=== PATIENT | male | born 1935 | race Caucasian/White ===

== ENCOUNTER 2018-12-23 17:30 | Inpatient (IN) ==
--- NOTE | 2018-12-23 18:11 | PROVIDER DOCUMENTATION ---
This chart was entered by Glenna Reynolds Scribe, acting as scribe for Melida Potts MD. HPI-General Adult <Paxton Boyle - Last Filed: 12/23/18 20:08> - General Source: EMS - History of Present Illness -Gen Adult Nature of Presenting Problems: 83 y/o male presents to ED with fever, confusion, and cough onset 3 days ago. Pt is confused and nonverbal. Location of Pain/Injury: reports: none Pain Radiation: reports: no radiation Quality of Pain: reports: none Severity: reports: mild Onset/Duration: reports: 3 days ago Timing: reports: still present Context/Activities at Onset: reports: none Modifying Factors: improves with: nothing Associated Symptoms: reports: cough, fever/chills, other (confusion) Similar Symptoms Previously?: No Recently seen or treated by another doctor?: No <Melida Potts - Last Filed: 12/24/18 15:39> - General Chief Complaint: Fever Stated Complaint: fever Time Seen by Provider: 12/23/18 17:39 Allergies/Adverse Reactions: Patient Allergies Allergy/AdvReac Type Severity Reaction Status Date / Time No Known Allergies Allergy Verified 05/23/18 16:09 Home Medications: Home Medication List Medication Instructions Recorded Confirmed Last Taken Type Latanoprost/Pf [Latanoprost 0.005% 1 drop OP QHS 05/23/18 12/23/18 Unknown History Eye Drop] Acetaminophen [Tylenol] 325 mg PO TID 12/23/18 12/23/18 Unknown History Aspirin 81 mg PO DAILY 12/23/18 12/23/18 Unknown History Review of Systems - Adult - REVIEW OF SYSTEMS - ADULT Constitutional: reports: fever, other (confusion). denies: chills Eyes: reports: no symptoms reported Ears, Nose, Mouth & Throat: reports: no symptoms reported Cardiovascular: denies: chest pain, palpitations Respiratory: reports: cough. denies: shortness of breath Gastrointestinal: denies: abdominal pain, diarrhea, nausea, vomiting Genitourinary: reports: no symptoms reported Musculoskeletal: denies: back pain, joint pain Integumentary: reports: no symptoms reported Neurological: reports: other (confusion). denies: dizziness/vertigo, seizure Psychiatric: reports: no symptoms reported Endocrine: reports: no symptoms reported Hematologic/Lymphatic: reports: no symptoms reported Allergic/Immunologic: reports: no symptoms reported All Other Systems: Reviewed and Negative <Melida Potts - Last Filed: 12/24/18 15:39> Past History - Adult - PAST MEDICAL HISTORY-ADULT Review of Records: reports: Old Records Reviewed, Nursing Assessment Review, Medications Reviewed Major Childhood Illnesses: reports: history unknown Cardiovascular: reports: HTN, hyperlipidemia Respiratory: reports: denies history Gastrointestinal: reports: denies history Obstetrical/Gynecological: reports: denies history Genitourinary: reports: denies history Musculoskeletal: reports: denies history Neurological: reports: dementia Psychiatric: reports: depression Endocrine/Immune: reports: denies history Other Conditions: reports: cataract/glaucoma - PRIOR SURGERIES/PROCEDURES Surgical/Procedure History: reports: reviewed, not pertinent, hernia repair, other (cataract removal) - PRIOR HOSPITALIZATIONS Prior Hospitalizations: reports: none - IMMUNIZATION STATUS Childhood Immunizations: See Nurse Assessment Flu Vaccine: See Nurse Assessment - FAMILY HISTORY Family History: reviewed, not pertinent - SOCIAL HISTORY Smoking: quit less than 1 year Substance Use: none/never Alcohol Use Frequency: occasionally Living Situation: family <Melida Potts - Last Filed: 12/24/18 15:39> Physical Exam-General - PHYSICAL EXAM-ADULT Initial Vital Signs Reviewed: Yes - CONSTITUTIONAL General Appearance: alert, mild distress, other (confused; nonverbal) - EYES Eyes: PERRL/EOMI, pink conjunctivae - HEAD, EARS, NOSE, MOUTH & THROAT HENMT: normocephalic/atraumatic, moist mucous membranes - NECK Neck: full range of motion - RESPIRATORY Respiratory: other (rattling breath sounds) - CARDIOVASCULAR Cardiovascular: tachycardia - MUSCULOSKELETAL Back Exam: normal inspection Extremity: normal range of motion - SKIN Integumentary: normal color, warm/dry - NEUROLOGIC Neurologic: other (confused; nonverbal) - PSYCHIATRIC Psych/Mental Status: other (confused; nonverbal) <Melida Potts - Last Filed: 12/24/18 15:39> Progress - PLAN OF CARE/RESULTS Progress/Plan/Lab Results: Vital Signs - 8 hr 12/23/18 18:00 12/23/18 18:24 Temperature 103.1 F H 103.1 F H Pulse Rate 94 H 101 H Respiratory Rate 22 25 H Blood Pressure 116/72 127/81 O2 Sat by Pulse Oximetry 95 93 L Laboratory Results - last 24 hr 12/23/18 12/23/18 12/23/18 17:57 17:57 17:57 WBC RBC Hgb Hct MCV MCH MCHC RDW Std Deviation Plt Count MPV Immature Gran % (Auto) Neut % (Auto) Lymph % (Auto) [place] % (Auto) Eos % (Auto) Baso % (Auto) Immature Gran # (Auto) Neut # (Auto) Lymph # (Auto) [place] # (Auto) Eos # (Auto) Baso # (Auto) PT INR PTT (Actin FS) Sodium 135 L Potassium 3.8 Chloride 100 Carbon Dioxide 22 L Anion Gap 13 BUN 19 Creatinine 0.7 Estimated GFR/1.73 m2 > 60 BUN/Creatinine Ratio 27 Glucose 111 H Calculated Osmolality 273 Calcium 7.8 L Total Bilirubin 0.50 AST 20 ALT 18 Alkaline Phosphatase 73 Creatine Kinase 45 Troponin T < 0.010 Total Protein 6.4 Albumin 3.9 Globulin 3.0 Albumin/Globulin Ratio 2.0 Plasma Lactate 1.3 Urine Source Urine Color Urine Clarity Urine pH Ur Specific [place] Urine Protein Urine Ketones Urine Blood Urine Nitrite Urine Bilirubin Urine Urobilinogen Urine Microscopic RBC Urine WBC Urine Microscopic WBC Ur Epithelial Cells Urine Crystals Urine Bacteria Urine Casts Urine Yeast Urine Glucose 12/23/18 12/23/18 12/23/18 17:57 17:57 18:22 WBC 10.85 H RBC 3.38 L Hgb 11.4 L Hct 34.0 L MCV 100.6 H MCH 33.7 H MCHC 33.5 RDW Std Deviation 12.3 Plt Count 131 MPV 10.4 Immature Gran % (Auto) 0.3 Neut % (Auto) 79.7 H Lymph % (Auto) 11.3 L [place] % (Auto) 7.8 Eos % (Auto) 0.6 Baso % (Auto) 0.3 Immature Gran # (Auto) 0.03 Neut # (Auto) 8.64 H Lymph # (Auto) 1.23 [place] # (Auto) 0.85 H Eos # (Auto) 0.07 Baso # (Auto) 0.03 PT 13.4 INR 0.97 PTT (Actin FS) 30.1 Sodium Potassium Chloride Carbon Dioxide Anion Gap BUN Creatinine Estimated GFR/1.73 m2 BUN/Creatinine Ratio Glucose Calculated Osmolality Calcium Total Bilirubin AST ALT Alkaline Phosphatase Creatine Kinase Troponin T Total Protein Albumin Globulin Albumin/Globulin Ratio Plasma Lactate Urine Source CATH Urine Color YELLOW Urine Clarity VERY CLOUDY A Urine pH 7.0 Ur Specific [place] 1.010 Urine Protein 1+(30 mg/dL) A Urine Ketones TRACE Urine Blood 3+ A Urine Nitrite NEGATIVE Urine Bilirubin NEGATIVE Urine Urobilinogen NORMAL Urine Microscopic RBC 10-20 A Urine WBC 2+ A Urine Microscopic WBC TNTC A Ur Epithelial Cells <10 Urine Crystals NONE SEEN Urine Bacteria 1+ Urine Casts NONE SEEN Urine Yeast PRESENT Urine Glucose NEGATIVE Orders Category Date Time Status Cardiac Monitoring DIRECTED Care 12/23/18 17:58 Active IV Insertion ORDERED Care 12/23/18 17:58 Completed Notify MD of + Sepsis Screen NOW Care 12/23/18 17:58 Active Notify Physician As Ordered Care 12/23/18 17:58 Active CHEST-1 VIEW [RAD] Stat Exams 12/23/18 17:58 Completed BLOOD CULTURE [BLDCUL] Stat Lab 12/23/18 18:11 Ordered CBC WITH DIFF [HEME] Stat Lab 12/23/18 17:57 Completed CK PROFILE [SP CHEM] Stat Lab 12/23/18 17:57 Completed COMPREHENSIVE METABOLIC PANEL [CHEM] Stat Lab 12/23/18 17:57 Completed LACTATE, PLASMA [CHEM] Lab 12/23/18 17:57 Completed LACTATE, PLASMA [CHEM] Lab 12/23/18 21:00 Uncollected LACTATE, PLASMA [CHEM] Lab 12/24/18 00:00 Uncollected PROTIME WITH INR [COAG] Stat Lab 12/23/18 17:57 Completed PTT [COAG] Stat Lab 12/23/18 17:57 Completed TROPONIN T Stat Lab 12/23/18 17:[address] W/POSS RFLX CULT [URINALYSIS] Stat Lab 12/23/18 18:22 Completed URINE CULTURE [RM] Routine Lab 12/23/18 19:19 Ordered Acetaminophen [Tylenol] Med 12/23/18 18:53 Discontinued 650 mg .ROUTE .STK-MED ONE Acetaminophen [Tylenol] Med 12/23/18 18:29 Discontinued 650 mg PO NOW ONE Acetaminophen [Tylenol] Med 12/23/18 18:56 Discontinued 650 mg PO NOW ONE Oxygen Device Stat Oth 12/23/18 17:58 Active Result Diagrams: 12/23/18 17:57 12/23/18 17:57 <Paxton Boyle - Last Filed: 12/23/18 20:08> - PLAN OF CARE/RESULTS Progress/Plan/Lab Results: Orders Category Date Time Status Cardiac Monitoring DIRECTED Care 12/23/18 17:58 Ordered IV Insertion ORDERED Care 12/23/18 17:58 Ordered Notify MD of + Sepsis Screen NOW Care 12/23/18 17:58 Ordered Notify Physician As Ordered Care 12/23/18 17:58 Ordered CHEST-1 VIEW [RAD] Stat Exams 12/23/18 17:58 Ordered BLOOD CULTURE [BLDCUL] Stat Lab 12/23/18 17:58 Uncollected CBC WITH DIFF [HEME] Stat Lab 12/23/18 17:58 Uncollected CK PROFILE [SP CHEM] Stat Lab 12/23/18 17:58 Uncollected COMPREHENSIVE METABOLIC PANEL [CHEM] Stat Lab 12/23/18 17:58 Uncollected PROTIME WITH INR [COAG] Stat Lab 12/23/18 17:58 Uncollected PTT [COAG] Stat Lab 12/23/18 17:58 Uncollected TROPONIN T Stat Lab 12/23/18 17:58 Uncollected Result Diagrams: 12/23/18 17:57 12/23/18 17:57 - XRAY 1 XRAY Study: Chest Impression: See EMR Report - CHANGE OF SHIFT REPORT (ED Provider) 1 Report Given and Care Transferred to:: Dr Boyle Time of Transfer: 19:00 Items Pending: Labs, XRAY Results, Other (reassessment after treatment) <Melida Potts - Last Filed: 12/24/18 15:39> Departure - Departure Date of Disposition Decision: 12/23/18 Time of Disposition Decision: 20:13 Certified Medical Emergency: Emergent - Critical Care Note This patient required my direct & personal management of CC.: No <Paxton Boyle - Last Filed: 12/23/18 20:08> <Melida Potts - Last Filed: 12/24/18 15:39> - Departure DIAGNOSIS: Pneumonia, UTI (urinary tract infection) Disposition: ADMITTED INPATIENT 09 Condition: Stable Attestation - Physician/ TANA Attestation Patient care was provided by Advanced Practice Provider:: No The physician spent face to face time with patient:: Yes Advanced Practice Provider documentation review:: Supervising physician onsite and consulted in the evaluation and care of this patient. The physician did have a face to face encounter with the patient. <Paxton Boyle - Last Filed: 12/23/18 20:08> - Physician/ TANA Attestation Patient care was provided by Advanced Practice Provider:: No The physician spent face to face time with patient:: Yes Advanced Practice Provider documentation review:: Supervising physician onsite and consulted in the evaluation and care of this patient. The physician did have a face to face encounter with the patient. <Melida Potts - Last Filed: 12/24/18 15:39> This chart was documented by the indicated scribe, (Glenna Reynolds, Scrravinder) and accurately reflects the services I performed and decisions made by Delroy phillips Mai Huu, MD, as attested by the provider's signature.
[2018-12-23] MEDS ORDERED: TYLENOL PO ONE ×2 (18:29→18:56)
[2018-12-23 18:32] LABS: BASO# 0.03 X1000 (0.0-0.2); BASO% 0.3 % (0.0-0.8); EOS# 0.07 X1000 (0.0-0.7); EOS% 0.6 % (0.0-10.0); HEMOGLOBIN 11.4 g/dL (14.0-18.0); IMM GRAN# 0.03 X1000 (0.0-0.04); IMM GRAN% 0.3 % (0.0-0.5); LYMPH# 1.23 X1000 (1.2-3.4); LYMPH% 11.3 % (20.5-51.1); MCH 33.7 PG (27-31); MCHC 33.5 g/dL (33-37); MCV 100.6 FL (81-99); MONO# 0.85 X1000 (0.11-0.59); MONO% 7.8 % (1.7-9.3); MPV 10.4 FL (7.4-10.4); NEUT# 8.64 X1000 (1.4-6.5); NEUT% 79.7 % (42.2-75.2); PLT 131 X1000 (130-400); RBC 3.38 XMIL (4.7-6.1); RDW 12.3 % (11.5-14.5); WBC 10.85 X1000 (4.8-10.8)
[2018-12-23 18:42] LABS: BILIRUBIN URINE NEGATIVE (NEGATIVE); BLOOD URINE 3+ (NEGATIVE); CLARITY VERY CLOUDY (CLEAR); COLOR YELLOW; GLUCOSE URINE NEGATIVE (NEGATIVE); KETONE URINE TRACE mg/dL (NEGATIVE); LEUKOCYTES URINE 2+ (NEGATIVE); NITRITE URINE NEGATIVE (NEGATIVE); PROTEIN URINE 1+(30 mg/dL) mg/dL (NEGATIVE); UROBILINOGEN URINE NORMAL
[2018-12-23 18:48] LABS: INR 0.97; PROTIME 13.4 Seconds (11.0-16.0); PTT 30.1 Seconds (22.3-41.8)
[2018-12-23] MEDS ORDERED: TYLENOL ONE (18:53)
--- NOTE | 2018-12-23 19:06 | Diag Imaging Result Doc PS360 ---
CHEST-1 VIEW - 12/23/2018 INDICATION: cough and fever COMPARISON: 05/23/2018 FINDINGS: There are ill-defined infiltrates in the right middle lobe and left lower lobe. Heart size is top normal. No pneumothorax or significant pleural effusion. IMPRESSION: Ill-defined bilateral basilar infiltrates/pneumonia. Electronically signed by Simeon Cosme 12/23/2018 7:04 PM
[2018-12-23 19:13] LABS: URINE SOURCE CATH
[2018-12-23 19:14] LABS: AGAP 13; ALBUMIN 3.9 g/dL (3.5-5.0); ALKALINE PHOSPHATASE 73 U/L (32-122); BUN 19 mg/dL (8-22); CALCIUM 7.8 mg/dL (8.8-10.2); CHLORIDE 100 mmol/L (98-107); CK PROFILE 45 U/L (24-204); COSMO 273; CREATININE 0.7 mg/dL (0.7-1.2); ESTIMATED GFR > 60; GLUCOSE 111 mg/dL (70-104); GOT 20 U/L (10-34); GPT 18 U/L (10-44); POTASSIUM 3.8 mmol/L (3.5-5.1); SODIUM 135 mmol/L (136-145); TCO2 22 mmol/L (25-35); TOTAL PROTEIN 6.4 g/dL (6.3-8.3)
[2018-12-23 19:19] LABS: URINE BACTERIA 1+ /HFP; URINE CAST NONE SEEN /LPF; URINE CRYSTAL NONE SEEN /HPF; URINE EPITHELIAL CELLS <10 /HPF (<10); URINE WBC TNTC /HPF (<10); URINE YEAST PRESENT /HPF
[2018-12-23] MEDS ORDERED: LEVAQUIN 500 MG/D5W 500 MG/100 ML IVPB IV ONE (20:54)
[2018-12-23] MEDS ORDERED: NS 1,000 ML IV ONE (20:54)
[2018-12-23] MEDS: DUONEB (A & A) INH SCH (23:44)
[2018-12-23] MEDS ORDERED: DUONEB (A & A) ONE (23:44)
[2018-12-24] MEDS: DUONEB (A & A) INH SCH ×4 (03:15→22:06)
[2018-12-24] MEDS: TYLENOL PO PRN ×2 (04:19→10:49)
[2018-12-24] MEDS ORDERED: NS 1,000 ML IV ONE (08:50)
[2018-12-24] MEDS ORDERED: ROCEPHIN 1 GM in NS 50 ML IV SCH (09:00)
[2018-12-24] MEDS: MUCOMYST 20% INH SCH ×2 (09:15→22:06)
[2018-12-24] MEDS: PULMICORT INH SCH ×2 (09:20→22:06)
[2018-12-24] MEDS: ASPIRIN PO SCH (09:26)
[2018-12-24] MEDS ORDERED: DULCOLAX PR ONE (10:05)
[2018-12-24] MEDS ORDERED: MOTRIN PO PRN (11:10)
[2018-12-24] MEDS: ZOSYN 3.375 GM in NS 50 ML IV SCH ×3 (11:25→23:11)
[2018-12-24] MEDS: OFIRMEV 1000 MG/ISOTONIC SOLN 1,000 MG/100 ML BOTTLE IV PRN ×2 (11:57→20:54)
[2018-12-24] MEDS: SODIUM CHLORIDE 0.9% INJ SCH (12:37)
[2018-12-24] MEDS: PEPCID IV SCH (12:38)
[2018-12-24 13:14] LABS: INFLUENZA A NEGATIVE (NEGATIVE); INFLUENZA B NEGATIVE (NEGATIVE)
[2018-12-24] MEDS: ZITHROMAX 500 MG/NS 500 MG/250 ML IVPB IV SCH (14:21)
--- NOTE | 2018-12-24 15:23 | HISTORY AND PHYSICAL ---
This is an Addendum. Please see below for changes. CHIEF COMPLAINT: Productive cough and fevers. PRIMARY CARE PHYSICIAN: Dr. Nathen Thomas HISTORY OF PRESENT ILLNESS: Mr. Buck Velásquez is an 83-year-old male with a medical history of end stage Alzheimer's dementia, glaucoma, who is here due to fevers and productive cough that started yesterday per the family who is at the bedside. The patient is unable to give any type of history or really carry on any type of conversation due to the advanced dementia and Alzheimer's. Apparently he had gotten up to 102.9. He was initiated on antibiotic therapy. In the ER, he was found to have on his chest x-ray bilateral bibasilar pneumonia. Productive phlegm that is a cream color. We have ordered a sputum culture. He is not in sepsis. His heart rate is in normal range, but he does keep having spikes in fevers. He is negative for the flu. He is a DNR due to his living will specifications. On further questioning the family, it has been 2 days since he has had a bowel movement. Due to the fact that he refuses to wear dentures, they have to puree all of his food. There is a good possibility he could be aspirating or refluxing from constipation. PAST MEDICAL HISTORY: 1. End stage Alzheimer's dementia. 2. Hyperlipidemia. 3. Glaucoma. PAST SURGICAL HISTORY: 1. Right hip hemiarthroplasty by Dr. Rivas in 05/2018. 2. Inguinal hernia surgery. SOCIAL HISTORY: Quit smoking 40 plus years ago. No alcohol. Lives at home with his . He has several family members that are good caretakers for him. He walks without an assistive device but essentially uses 2-person assistance. FAMILY HISTORY: Mother had Alzheimer's dementia and a stroke. Father unknown. ALLERGIES: No known drug allergies. HOME MEDICATIONS: 1. Latanoprost 1 drop in both eyes at night. 2. Aspirin 81 mg p.o. daily. 3. Tylenol 325 mg p.o. 3 times a day. REVIEW OF SYSTEMS: Unable to obtain. PHYSICAL EXAMINATION: VITAL SIGNS: Temperature is 102.1, heart rate 95, respiratory rate 18, blood pressure 110/92, O2 saturation is 98% on nasal cannula 2 L. GENERAL: Mr. Buck Velásquez is an 83-year-old male. He is in no acute distress, but he does not answer questions due to the severity of his Alzheimer's. HEENT: Atraumatic and normocephalic. Pupils are equal and reactive. He does not follow commands, so extraocular movements could not be performed. Mucous membranes are dry. Without teeth or dentures. NECK: Trachea midline. CARDIOVASCULAR: S1, S2. Regular rate and rhythm. No rubs, gallops or murmurs. No lower extremity edema. Plus 2 dorsalis pedal pulses. Plus 2 radial pulses. Negative JVD or carotid bruits. PULMONARY: Coarse throughout, expiratory rhonchi. Tolerating 2 L nasal cannula. No accessory muscle use or work of breathing noted. GASTROINTESTINAL: Soft. Nontender and nondistended. Positive bowel sounds x4. EXTREMITIES: Moves all extremities equally. Decreased range of motion. NEUROLOGICAL: Disoriented. He does not answer questions, just talks randomly. He does not follow commands. SKIN: Warm, dry and intact. DIAGNOSTIC DATA: White blood cells 10,000, hemoglobin 11, hematocrit 34, platelet count 131. INR is 0.97. PTT is 30.1. Sodium is 135, potassium 3.8, BUN is 19, creatinine 0.7, glucose 111, calcium 7.8, bilirubin 0.50, AST is 20, ALT is 18. CK is 45. Troponin less than 0.01. Albumin 3.0, lactate 1.9. He had 3 lactates performs, the first one was 1.3, the second one was 1.5, and the last one was 1.9. Urinalysis is very cloudy, 1+ protein, 3+ bacteria, 10 to 20 microscopic red blood cells, 2+ white blood cells, too numerous to count microscopic white blood cells, 1+ bacteria, yeast is present. Negative flu. IMAGING: Chest x-ray with bibasilar pneumonia. Telemetry strips show he is sinus rhythm. ASSESSMENT AND PLAN: 1. Community acquired pneumonia versus aspiration pneumonia. He has had some constipation along with not wearing dentures when he eats, and food has to be pureed, so he is at risk for aspiration. Antibiotic that has been initiated is Zosyn. He did get Levaquin. He is on nebulizers, pulmonary toilet as able, Mucomyst nebulizers. Budesonide was added. 2. Glaucoma. Eyedrops resumed. 3. Hyperlipidemia. He is not on a statin at home. 4. End stage Alzheimer's dementia. He has been off all of his dementia medications since 05/2018. 5. Acute hypoxemic respiratory failure. All he is requiring is 2 L of oxygen right now. We will titrate as needed. He is currently on nebulizers. 6. DVT prophylaxis. Lovenox. 7. Fever control. Motrin and Ofirmev. 8. Constipation. He is being started on Dulcolax. He could be having some reflux on that, so he has been started on Pepcid 20 IV q.12. Dictated by MARQUISE Moreira for Del Polanco MD cc: MARQUISE Moreira MD ADDENDUM #2 (Dictated: 12/24/2018 @ 13:47:30) ASSESSMENT AND PLAN: Urinary tract infection. Unable to give any symptoms due to his advanced dementia, Alzheimer's, but with the urinalysis, it looks like he has a urinary tract infection, and Zosyn should cover that as well. Dictated by MARQUISE Moreira for Del Polanco MD cc: MARQUISE Moreira MD
--- NOTE | 2018-12-24 15:27 | PROGRESS NOTE ---
DATE: 12/24/2018 ADDENDUM: The patient is an 83-year-old gentleman, has very good family support, severe dementia, who comes in with fever and cough, altered mental status. He is verbal although limited. He came in with significant confusion. He had temperatures of up to 103 in the ER and evidence of pneumonia and UTI. On exam he has rhonchorus breath sounds, not particularly hypoxic but he is minimally awake. In any case, patient came in for workup. He met criteria I think initially for sepsis although I do not think his initial issues revealed sepsis. He will be treated with broad- spectrum antibiotics and we will evaluate for possible aspiration. This is a [id number] encounter note with Angy Fernando. cc: Del Polanco MD
[2018-12-24] MEDS: XALATAN 0.005% OPH SOLN OPH SCH (20:53)
[2018-12-24] MEDS: DULCOLAX PR SCH (20:54)
[2018-12-25] MEDS: SODIUM CHLORIDE 0.9% INJ SCH (00:39)
[2018-12-25] MEDS: PEPCID IV SCH ×3 (00:39→23:14)
[2018-12-25] MEDS: DUONEB (A & A) INH SCH ×4 (03:02→20:32)
[2018-12-25] MEDS: ZOSYN 3.375 GM in NS 50 ML IV SCH ×4 (05:21→23:14)
[2018-12-25] MEDS ORDERED: LOVENOX SUBQ SCH (06:00)
[2018-12-25 06:13] LABS: AGAP 9; ALBUMIN 3.3 g/dL (3.5-5.0); ALKALINE PHOSPHATASE 80 U/L (32-122); BUN 14 mg/dL (8-22); CALCIUM 8.1 mg/dL (8.8-10.2); CHLORIDE 105 mmol/L (98-107); COSMO 281; CREATININE 0.7 mg/dL (0.7-1.2); ESTIMATED GFR > 60; GLUCOSE 111 mg/dL (70-104); GOT 19 U/L (10-34); GPT 18 U/L (10-44); POTASSIUM 3.8 mmol/L (3.5-5.1); SODIUM 140 mmol/L (136-145); TCO2 26 mmol/L (25-35); TOTAL PROTEIN 6.2 g/dL (6.3-8.3)
[2018-12-25 06:20] LABS: HEMATOCRIT 31.4 % (42.0-52.0); MCV 103.3 FL (81-99); RBC 3.04 XMIL (4.7-6.1); WBC 8.17 X1000 (4.8-10.8)
[2018-12-25 06:21] LABS: BASO# 0.02 X1000 (0.0-0.2); BASO% 0.2 % (0.0-0.8); EOS# 0.03 X1000 (0.0-0.7); EOS% 0.4 % (0.0-10.0); IMM GRAN# 0.01 X1000 (0.0-0.04); IMM GRAN% 0.1 % (0.0-0.5); LYMPH# 1.41 X1000 (1.2-3.4); LYMPH% 17.3 % (20.5-51.1); MCH 32.9 PG (27-31); MCHC 31.8 g/dL (33-37); MONO# 0.37 X1000 (0.11-0.59); MONO% 4.5 % (1.7-9.3); MPV 10.6 FL (7.4-10.4); NEUT# 6.33 X1000 (1.4-6.5); NEUT% 77.5 % (42.2-75.2); PLT 113 X1000 (130-400); RDW 12.5 % (11.5-14.5)
[2018-12-25] MEDS: OFIRMEV 1000 MG/ISOTONIC SOLN 1,000 MG/100 ML BOTTLE IV PRN ×3 (06:55→23:26)
--- NOTE | 2018-12-25 08:21 | Diag Imaging Result Doc PS360 ---
EXAM: CHEST-PORTABLE HISTORY: PNA TECHNIQUE: Single view of the chest was performed portably. COMPARISON: 12/23/2018 FINDINGS: The cardiomediastinal silhouette is within normal limits. Reduced lung volumes versus suboptimal inspiration is again identified. Mild increased lung markings are noted compatible with atelectasis or pneumonia. This appears somewhat improved from prior. The pulmonary vasculature is not congested. No pneumothorax is appreciated. Probable trace left effusion IMPRESSION: Reduced lung volumes. Improving mild bibasilar infiltrates. Electronically signed by Esperanza Morales 12/25/2018 8:19 AM
[2018-12-25] MEDS: ASPIRIN PO SCH (08:58)
[2018-12-25] MEDS: MUCOMYST 20% INH SCH ×2 (09:18→20:32)
[2018-12-25] MEDS: PULMICORT INH SCH ×2 (09:18→20:32)
[2018-12-25] MEDS ORDERED: VANCOMYCIN IV PER PHARMACY MISC SCH (09:45)
[2018-12-25] MEDS ORDERED: VANCOMYCIN 2,000 MG in NS 500 ML IV ONE (11:00)
--- NOTE | 2018-12-25 12:10 | Diag Imaging Result Doc PS360 ---
CT RENAL STONE SEARCH - 12/25/2018 INDICATION: uti/persistent fevers COMPARISON: 06/25/2012 FINDINGS: There is a substantial retrocardiac infiltrate and a small left pleural effusion. There is also some hazy infiltrate or atelectasis in the right lower lobe as well. Heart size is normal with no pericardial effusion. There is significant rectal stool impaction with a 7.7 cm rectal stool ball. There is really not much constipation throughout the rest of the colon. No bowel obstruction or inflammation. There is a stable large peripelvic renal cyst on the left. No radiodense renal stones. No hydronephrosis or hydroureter. Garcia catheter in the urinary bladder. Prostate gland is normal. There is a right femoral head prosthesis in good position. There are moderate degenerative changes of the spine. No acute or suspicious bony lesion. IMPRESSION: 1. Severe rectal stool impaction. 2. No renal stones or hydronephrosis. 3. Left lower lobe pneumonia with small effusion. Nonspecific patchy atelectasis or infiltrate in the right lower lobe as well. This exam was performed using automated exposure control, adjustment of mA or kV according to patient size, and/or use of iterative reconstruction technique Electronically signed by Simeon Cosme 12/25/2018 12:08 PM
[2018-12-25] MEDS ORDERED: FLEET MINERAL OIL ENEMA PR ONE (15:22)
[2018-12-25] MEDS: ZITHROMAX 500 MG/NS 500 MG/250 ML IVPB IV SCH (15:24)
[2018-12-25] MEDS: DULCOLAX PR SCH (20:38)
[2018-12-25] MEDS: LACTULOSE PO SCH (20:39)
[2018-12-25] MEDS: XALATAN 0.005% OPH SOLN OPH SCH (20:39)
[2018-12-26] MEDS: PEPCID IV SCH ×4 (00:30→22:57)
[2018-12-26] MEDS: DUONEB (A & A) INH SCH ×5 (04:26→22:03)
[2018-12-26] MEDS: ZOSYN 3.375 GM in NS 50 ML IV SCH ×4 (06:03→22:19)
[2018-12-26] MEDS: DULCOLAX PR SCH ×2 (06:04→22:17)
[2018-12-26 06:56] LABS: BASO# 0.02 X1000 (0.0-0.2); BASO% 0.3 % (0.0-0.8); EOS# 0.02 X1000 (0.0-0.7); EOS% 0.3 % (0.0-10.0); HEMATOCRIT 31.7 % (42.0-52.0); HEMOGLOBIN 10.3 g/dL (14.0-18.0); IMM GRAN# 0.02 X1000 (0.0-0.04); IMM GRAN% 0.3 % (0.0-0.5); LYMPH# 2.59 X1000 (1.2-3.4); MCH 33.3 PG (27-31); MCHC 32.5 g/dL (33-37); MCV 102.6 FL (81-99); MONO# 0.52 X1000 (0.11-0.59); MONO% 6.6 % (1.7-9.3); MPV 10.3 FL (7.4-10.4); NEUT# 4.69 X1000 (1.4-6.5); NEUT% 59.5 % (42.2-75.2); PLT 126 X1000 (130-400); RBC 3.09 XMIL (4.7-6.1); RDW 12.5 % (11.5-14.5); WBC 7.86 X1000 (4.8-10.8)
[2018-12-26 07:14] LABS: AGAP 9; BUN 13 mg/dL (8-22); CALCIUM 8.1 mg/dL (8.8-10.2); CHLORIDE 103 mmol/L (98-107); COSMO 274; CREATININE 0.7 mg/dL (0.7-1.2); ESTIMATED GFR > 60; GLUCOSE 106 mg/dL (70-104); POTASSIUM 4.1 mmol/L (3.5-5.1); SODIUM 137 mmol/L (136-145); TCO2 25 mmol/L (25-35)
[2018-12-26] MEDS: OFIRMEV 1000 MG/ISOTONIC SOLN 1,000 MG/100 ML BOTTLE IV PRN (07:57)
[2018-12-26] MEDS: MUCOMYST 20% INH SCH ×2 (09:28→22:03)
[2018-12-26] MEDS: PULMICORT INH SCH ×2 (09:29→22:03)
[2018-12-26] MEDS: ASPIRIN PO SCH (10:02)
[2018-12-26] MEDS: ARIXTRA SUBQ SCH (10:02)
[2018-12-26] MEDS: LACTULOSE PO SCH ×2 (10:03→22:17)
[2018-12-26] MEDS ORDERED: VANCOMYCIN 1,500 MG in NS 250 ML IV SCH (11:00)
[2018-12-26] MEDS: ZITHROMAX 500 MG/NS 500 MG/250 ML IVPB IV SCH (13:44)
[2018-12-26] MEDS ORDERED: TYLENOL PO PRN (15:41)
--- NOTE | 2018-12-26 18:45 | PROGRESS NOTE ---
DATE: 12/26/2018 SUBJECTIVE: Patient has no major complaints. OBJECTIVE: Vital Signs: Blood pressure 101/42, heart rate 72, respiratory rate of 22, temperature 98.5 degrees, satting 92% on 2 L. Cardiovascular: Regular rate and rhythm. Pulmonary: Bilateral breath sounds. Clear to auscultation. GI: Soft. Nonfocal. Neurologic: He is pleasantly confused. No major issues. He is still having some fevers, although not quite as intensely, but his T-max was 103 degrees. LABORATORY DATA: White count 7, hemoglobin and hematocrit 10 and 31, platelets 126. Basic was normal. MICROBIOLOGY: Showed an E coli pansensitive in his urine from the . Legionella and strep were negative. Influenza was negative. PROBLEM LIST: 1. Escherichia coli urinary tract infection and sepsis. We will continue Zosyn; that seems to be appropriate therapy. 2. Left lower lobe pneumonia. We will continue treatment, which is going to be mostly possibly aspiration. He is on Zosyn. We will continue to follow with that. 3. Dementia. Still some agitation, but overall he has improved. 4. Fecal impaction. We will continue bowel regimen. He is on Dulcolax, lactulose, MiraLAX. Repeat films tomorrow and see how he does. DISPOSITION: Home when he is afebrile for at least 24 hours, which has not happened. He has been persistently febrile for the last 3 days now. If he is still febrile, I am going to scan his chest, repeat his blood culture, and we may have to get Infectious Disease opinion and even possibly transfer him, but we will see how he does overnight. cc: Del Polanco MD
--- NOTE | 2018-12-26 20:12 | Diag Imaging Result Doc PS360 ---
EXAM: CT THORAX W/WO CONTRAST - 12/26/2018 HISTORY: fever TECHNIQUE: CT thorax without/with contrast. Images are obtained prior to and following intravenous contrast administration. COMPARISON: 12/25/2018 portable chest FINDINGS: There is consolidation at the bilateral lower lobes, most prominent on the left, which is suspicious for pneumonia. There is a small amount infiltrate or atelectasis at the posterior left upper lobe. There is a small left pleural effusion. There is no pneumothorax identified. There are mildly prominent mediastinal lymph nodes which may be reactive. The ascending aorta is mildly ectatic at 3.7 cm. There is no indication of aortic dissection. Included sections of upper abdomen show distention of stomach with fluid. IMPRESSION: Bilateral lower lobe infiltrates suspicious for pneumonia. Small left pleural effusion. Mildly prominent mediastinal lymph nodes which may be reactive. Stomach distended with fluid. This exam was performed using automated exposure control, adjustment of mA or kV according to patient size, and/or use of iterative reconstruction technique. Electronically signed by Lamont Aguilar 12/26/2018 8:10 PM
[2018-12-26] MEDS: MIRALAX PO SCH (22:17)
[2018-12-26] MEDS: XALATAN 0.005% OPH SOLN OPH SCH (22:19)
[2018-12-27] MEDS: PEPCID IV SCH ×2 (00:46→13:16)
[2018-12-27] MEDS: DUONEB (A & A) INH SCH ×4 (03:19→21:17)
[2018-12-27] MEDS: ZOSYN 3.375 GM in NS 50 ML IV SCH (05:32)
[2018-12-27 06:14] LABS: BASO# 0.04 X1000 (0.0-0.2); BASO% 0.6 % (0.0-0.8); EOS# 0.09 X1000 (0.0-0.7); EOS% 1.3 % (0.0-10.0); HEMATOCRIT 29.9 % (42.0-52.0); IMM GRAN# 0.02 X1000 (0.0-0.04); IMM GRAN% 0.3 % (0.0-0.5); LYMPH# 1.76 X1000 (1.2-3.4); MCH 33.7 PG (27-31); MCHC 33.4 g/dL (33-37); MCV 100.7 FL (81-99); MONO# 0.46 X1000 (0.11-0.59); MONO% 6.5 % (1.7-9.3); MPV 9.8 FL (7.4-10.4); NEUT# 4.66 X1000 (1.4-6.5); NEUT% 66.3 % (42.2-75.2); PLT 128 X1000 (130-400); RBC 2.97 XMIL (4.7-6.1); RDW 12.4 % (11.5-14.5); WBC 7.03 X1000 (4.8-10.8)
[2018-12-27 06:17] LABS: AGAP 8; ALBUMIN 2.9 g/dL (3.5-5.0); ALKALINE PHOSPHATASE 77 U/L (32-122); BUN 14 mg/dL (8-22); CALCIUM 8.1 mg/dL (8.8-10.2); CHLORIDE 107 mmol/L (98-107); COSMO 280; CREATININE 0.6 mg/dL (0.7-1.2); ESTIMATED GFR > 60; GLUCOSE 107 mg/dL (70-104); GOT 16 U/L (10-34); GPT 15 U/L (10-44); POTASSIUM 3.7 mmol/L (3.5-5.1); SODIUM 140 mmol/L (136-145); TCO2 25 mmol/L (25-35)
[2018-12-27] MEDS: ASPIRIN PO SCH (08:10)
[2018-12-27] MEDS: LACTULOSE PO SCH ×2 (08:12→20:02)
[2018-12-27] MEDS: MIRALAX PO SCH ×2 (08:13→20:03)
--- NOTE | 2018-12-27 08:15 | Diag Imaging Result Doc PS360 ---
ABDOMEN FLAT/UPRIGHT - 12/27/2018 INDICATION: sbo COMPARISON: 12/25/2018 FINDINGS: Detail is poor. The rectal stool impaction appears to have resolved. No bowel obstruction or free air. IMPRESSION: Apparent resolution of the rectal stool impaction. Electronically signed by Simeon Cosme 12/27/2018 8:13 AM
[2018-12-27] MEDS: PULMICORT INH SCH ×2 (08:28→21:15)
[2018-12-27] MEDS: MUCOMYST 20% INH SCH ×2 (09:04→21:19)
[2018-12-27] MEDS: ARIXTRA SUBQ SCH (10:23)
[2018-12-27] MEDS: MYCAMINE 100 MG in NS 100 ML IV SCH (11:34)
[2018-12-27] MEDS: MERREM 1 GM in NS 50 ML IV SCH ×2 (11:39→18:41)
--- NOTE | 2018-12-27 19:04 | PROGRESS NOTE ---
DATE: 12/27/2018 SUBJECTIVE: The patient has no major complaints. OBJECTIVE: Blood pressure 147/87, heart rate 44, respiratory rate 18, temperature 97.4 degrees, 93% on 3 L.Cardiovascular: Regular rate and rhythm. Pulmonary: Bilateral breath sounds, clear to auscultation. GI: Soft, nontender, nondistended. Bowel sounds are positive. LABORATORY DATA: White count 7, hemoglobin and hematocrit 20 and 29, platelets 128,000. Basic was normal. Clostridium difficile was normal. ASSESSMENT AND PLAN: Problem list: 1. Pneumonia, now bilateral. I have discussed the case with Dr. Iniguez. We greatly appreciate his help, and we will initiate meropenem and micafungin. He feels it is unlikely to be staphylococcus after 3 days of intravenous vancomycin and he is still having fevers. That being said, he has not had a fever since last night, so maybe the regimen was working, but I am going to go ahead and change him. He has pretty significant pneumonia, but clinically he looks well and he has not had a fever since last night. Since admission, he has had diurnal fevers in the morning and in the evening every day, so there is some improvement and white count is improved. 2. Dementia. He appears to be at his baseline, doing well. 3. Escherichia coli urinary tract infection. He is on Merrem. He could have been discharged on any medication. Pansensitive. We may end up doing Augmentin or something to that effect. 4. Thrombocytopenia, may be multifactorial. His levels look better. 5. Disposition: Hopefully home soon. His family is very attentive. They are going to pursue hospice as an outpatient, mostly for the services available, and we are going to plan to let him go home tomorrow if he stabilizes. cc: Del Polanco MD
[2018-12-27] MEDS: XALATAN 0.005% OPH SOLN OPH SCH (20:00)
[2018-12-27] MEDS: DULCOLAX PR SCH (20:02)
[2018-12-28] MEDS: PEPCID IV SCH ×2 (00:28→12:39)
[2018-12-28] MEDS: SODIUM CHLORIDE 0.9% INJ SCH ×2 (00:28→12:45)
[2018-12-28] MEDS: MERREM 1 GM in NS 50 ML IV SCH ×3 (02:59→18:33)
[2018-12-28] MEDS: DUONEB (A & A) INH SCH ×3 (03:53→15:40)
[2018-12-28 06:49] LABS: AGAP 10; BUN 11 mg/dL (8-22); CALCIUM 8.3 mg/dL (8.8-10.2); CHLORIDE 107 mmol/L (98-107); COSMO 281; CREATININE 0.6 mg/dL (0.7-1.2); ESTIMATED GFR > 60; GLUCOSE 102 mg/dL (70-104); POTASSIUM 3.9 mmol/L (3.5-5.1); SODIUM 141 mmol/L (136-145); TCO2 24 mmol/L (25-35)
[2018-12-28 07:21] LABS: BASO# 0.02 X1000 (0.0-0.2); BASO% 0.3 % (0.0-0.8); EOS# 0.23 X1000 (0.0-0.7); HEMATOCRIT 30.9 % (42.0-52.0); HEMOGLOBIN 10.1 g/dL (14.0-18.0); IMM GRAN# 0.02 X1000 (0.0-0.04); IMM GRAN% 0.3 % (0.0-0.5); LYMPH# 1.75 X1000 (1.2-3.4); LYMPH% 22.9 % (20.5-51.1); MCH 32.7 PG (27-31); MCHC 32.7 g/dL (33-37); MONO# 0.48 X1000 (0.11-0.59); MONO% 6.3 % (1.7-9.3); MPV 9.9 FL (7.4-10.4); NEUT# 5.14 X1000 (1.4-6.5); NEUT% 67.2 % (42.2-75.2); PLT 157 X1000 (130-400); RBC 3.09 XMIL (4.7-6.1); RDW 12.5 % (11.5-14.5); WBC 7.64 X1000 (4.8-10.8)
[2018-12-28] MEDS: ASPIRIN PO SCH (09:02)
[2018-12-28] MEDS: ARIXTRA SUBQ SCH (09:02)
[2018-12-28] MEDS: MIRALAX PO SCH (09:12)
[2018-12-28] MEDS: LACTULOSE PO SCH (09:12)
[2018-12-28] MEDS: MUCOMYST 20% INH SCH (09:56)
[2018-12-28] MEDS: PULMICORT INH SCH (09:57)
[2018-12-28] MEDS: MYCAMINE 100 MG in NS 100 ML IV SCH (11:33)
[2018-12-28 16:53] VITALS: BP 148/92
--- NOTE | 2018-12-29 07:31 | DISCHARGE SUMMARY ---
ADMISSION DATE: 12/23/2018 DISCHARGE DATE: 12/28/2018 DISCHARGE NOTE: He is doing well. He is afebrile now for over 24 hours. Peak temperature was 99.9 degrees yesterday at 8:22. His last fever was on the and 102.6, but he was persistently febrile since the . I felt stable for discharge. He is breathing comfortably, normal white count, not hypoxic. So we will plan to discharge him on Augmentin for aspiration pneumonia. That will also cover his Escherichia coli UTI which is sensitive to ampicillin and ampicillin sulbactam. Left lower lobe pneumonia, we will continue antibiotics, breathing treatments. I am going to continue the Diflucan because that is what we converted him to yesterday after discussion with Dr. Iniguez. He did have some funguria, although did not grow that out, and we will give him AA nebs. This is a [id number] encounter note with Angy Fernando, 32 minute discharge. cc: Del Polanco MD
--- NOTE | 2018-12-29 17:17 | DISCHARGE SUMMARY ---
ADMISSION DATE: 12/23/2018 DISCHARGE DATE: 12/28/2018 ADMISSION DIAGNOSES: 1. Community-acquired pneumonia versus aspiration pneumonia. 2. Glaucoma. 3. Hyperlipidemia. 4. End-stage Alzheimer's dementia. 5. Acute hypoxemic respiratory failure. 6. Fever control. 7. Constipation. DISCHARGE DIAGNOSES: 1. Pneumonia, bilaterally now. Case was discussed with Dr. Iniguez. Due to the continued issues with fever, had 3 days of vancomycin and was changed over to meropenem and micafungin. 2. Dementia, at baseline. 3. Escherichia coli urinary tract infection, on Merrem. 4. Thrombocytopenia, multifactorial. 5. Constipation, resolved. CONSULTATIONS: None but Dr. Iniguez was consulted by home. SURGERIES AND PROCEDURES: None. HOSPITAL COURSE: On 12/23/2018 Mr. Buck Velásquez an 83-year-old male was brought in by his family due to fevers and productive cough that had started the day he presented or the day before. The family is at the bedside. The patient is unable to give any kind of history due to advanced dementia, Alzheimer. So apparently, he had been running fevers up to 102.9, had a productive phlegm that was cream in color. He was initiated on antibiotic therapy and a chest x- ray which showed bibasilar pneumonia. Phlegm was cream colored. No signs of sepsis. Flu was negative. He just continued to have fever spike. Urinalysis came back positive and urine culture was E. coli positive. He had already been on a pureed diet. Family kept him on that due to the fact that he would refuse his dentures. They stated they had been having normal bowel movements but had not had any bowel movements for at least 2 days prior to admission. He had imaging that showed that he had a large stool impaction which was easily fixed with laxatives. Antibiotic regimen was eventually from Zosyn and vancomycin and azithromycin to meropenem and micafungin and the meropenem would cover the E. coli. There was no resistance on the E. coli. He eventually became afebrile for at least 24+ hours. Vital signs were stable. He was having bowel movements. He was improving so he was allowed to be discharged home with hospice care and his attentive family. DISCHARGE VITAL SIGNS: Temperature 98.3 degrees, heart rate 70, respiratory rate 18, blood pressure 148/92, O2 saturation 98% on room air. DISCHARGE LAB DATA: White blood cells 7,000, hemoglobin 10, hematocrit 30, platelet count 157,000. Sodium 141, potassium 3.9, BUN 11, creatinine 0.6, glucose 102, calcium 8.3. C. difficile was negative. Flu was negative. Legionella negative. Strep pneumoniae also negative. MICROBIOLOGY: Blood cultures on the and the were both negative. There was a urine culture on the which was E. coli positive but pansensitive. IMAGING: On the ill-defined bibasilar infiltrates and pneumonia on the chest x-ray. Repeat chest x-ray on the showed that the infiltrates were improving. Had a renal CT on the which was what showed the severe rectal stool impaction, continued to show a left lower pneumonia and some in the right as well. On the had a chest CT, continued show bilateral lower lobe infiltrates or pneumonia. An abdominal x-ray showed resolution of the stool impaction. MEDICATIONS: 1. Diflucan 100 mg p.o. daily. 2. Augmentin 1 tablet p.o. every 12 hours for 7 days. 3. Albuterol Atrovent nebulizers every 6 hours. 4. Aspirin 81 mg p.o. daily. 5. Tylenol 325 mg p.o. 3 times daily. 6. Latanoprost 1 drop in both eyes nightly. DISCHARGE DIET: Pureed. DISCHARGE ACTIVITY: As tolerated. DISCHARGE FOLLOW UP: Dr. Nathen Thomas, his primary care provider. DISCHARGE INSTRUCTIONS: If your condition changes, contact your physician and/or return to the emergency department. Changes may include, but are not limited to, shortness of breath, increased fatigue, excessive bleeding, unexplained weight loss or gain, unimaginable pain, signs or symptoms of infection. DISCHARGE DISPOSITION: Home with hospice. Dictated by MARQUISE Moreira for Del Polanco MD cc: MARQUISE Moreira MD
== END 2018-12-28 19:30 | disposition hospice, home (50) | DRG 871 ==
LOC: P.ED 17:30 → P.MEDSURG 20:40
PROVIDERS: ATTEND Internal Medicine
CPT/HCPCS: 36415; 51702; 71010; 71045; 71270; 74019; 74020; 74176; 80048; 80053; 81001; 82550; 82607; 82746; 83605; 84484; 85025; 85610; 85730; 87040; 87077; 87088; 87186; 87275; 87276; 87324; 87449; 87804; 87899; 92610; 94640; 94667; 94668; 94761; 97163; 97530; 99285; A9270; J0131; J0456; J0696; J1650; J1652; J1956; J2185; J2248; J2543; J3370; J7030; J7040; J7050; Q9967; S0028